=== PATIENT | male | born 1980 | race American Indian/Alaskan Native ===

== ENCOUNTER 2017-08-26 20:28 | Emergency (ER) | payer OTHER ==
[2017-08-26 20:34] VITALS: BP 183/96
[2017-08-26] MEDS ORDERED: TYLENOL PO ONE (20:53)
[2017-08-26] MEDS ORDERED: TYLENOL ONE (20:53)
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
== END 2017-08-26 21:47 | disposition home or self-care (01) ==
LOC: EDSEX → ED 20:28
DX: S16.1XXA Strain of muscle, fascia and tendon at neck level, initial encounter (principal); E66.01 Morbid (severe) obesity due to excess calories; Z68.43 Body mass index [BMI] 50.0-59.9, adult; M54.6 Pain in thoracic spine; R03.0 Elevated blood-pressure reading, without diagnosis of hypertension; V49.49XA Driver injured in collision with other motor vehicles in traffic accident, initial encounter; Y93.89 Activity, other specified; Y92.89 Other specified places as the place of occurrence of the external cause; Y99.8 Other external cause status
CPT/HCPCS: 99282